=== PATIENT | male | born 1960 | race Caucasian/White ===

== ENCOUNTER 2022-01-19 11:38 | Day surgery (SDC) | payer OTHER ==
[2022-01-18 13:32] VITALS: BMI 24.4
[2022-01-19] MEDS ORDERED: Oxymetazoline HCl 0.05% (30 ML BOT) ONE ×2 (12:06→12:51)
[2022-01-19] MEDS ORDERED: fentaNYL PF 100 MCG/2 ML SYRINGE ONE (12:49)
[2022-01-19] MEDS ORDERED: EPINEPHrine 1 MG/ML AMP ONE (12:51)
[2022-01-19] MEDS ORDERED: Bacitracin Zinc Ointment 30 gm TUBE ONE (12:51)
[2022-01-19] MEDS ORDERED: Lidocaine 1% (PF) 30 ML VIAL ONE (12:51)
[2022-01-19] MEDS ORDERED: PROPOFOL 200 MG/20 ML VIAL ONE (13:06)
[2022-01-19] MEDS ORDERED: ePHEDrine 50 MG/ML VIAL ONE (13:06)
[2022-01-19] MEDS ORDERED: Rocuronium Bromide 10 MG/ML (10ML VIAL) ONE (13:06)
[2022-01-19] MEDS ORDERED: Dexamethasone 20 MG/5 ML VIAL ONE (13:06)
[2022-01-19] MEDS ORDERED: Ondansetron PF 4 MG/2 ML Vial ONE (13:06)
[2022-01-19] MEDS ORDERED: SUGAMMADEX SODIUM 200 MG/2 ML VIAL ONE (13:24)
[2022-01-19] MEDS ORDERED: HYDROcodone/Acetaminophen 5/325 mg Tablet ONE (17:47)
== END 2022-01-19 18:48 | disposition home or self-care (01) ==
LOC: SDC 11:38
PROVIDERS: ATTEND Otolaryngology Plastic Surgery within the Head & Neck
PROC: 095L0ZZ Destruction of Nasal Turbinate, Open Approach (ICD-10-PCS; principal; 2022-01-19)
PROC: 09TU8ZZ Resection of Right Ethmoid Sinus, Via Natural or Artificial Opening Endoscopic (ICD-10-PCS; principal; 2022-01-19)
PROC: 09BW8ZZ Excision of Right Sphenoid Sinus, Via Natural or Artificial Opening Endoscopic (ICD-10-PCS; principal; 2022-01-19)
PROC: 09BT8ZZ Excision of Left Frontal Sinus, Via Natural or Artificial Opening Endoscopic (ICD-10-PCS; principal; 2022-01-19)
PROC: 09BS8ZZ Excision of Right Frontal Sinus, Via Natural or Artificial Opening Endoscopic (ICD-10-PCS; principal; 2022-01-19)
PROC: 09BQ8ZZ Excision of Right Maxillary Sinus, Via Natural or Artificial Opening Endoscopic (ICD-10-PCS; principal; 2022-01-19)
PROC: 09BR8ZZ Excision of Left Maxillary Sinus, Via Natural or Artificial Opening Endoscopic (ICD-10-PCS; principal; 2022-01-19)
PROC: 09BX8ZZ Excision of Left Sphenoid Sinus, Via Natural or Artificial Opening Endoscopic (ICD-10-PCS; principal; 2022-01-19)
PROC: 8E09XBZ Computer Assisted Procedure of Head and Neck Region (ICD-10-PCS; principal; 2022-01-19)
PROC: 09SM0ZZ Reposition Nasal Septum, Open Approach (ICD-10-PCS; principal; 2022-01-19)
PROC: 09TV8ZZ Resection of Left Ethmoid Sinus, Via Natural or Artificial Opening Endoscopic (ICD-10-PCS; principal; 2022-01-19)
DX: J32.0 Chronic maxillary sinusitis (principal); J33.8 Other polyp of sinus; J30.89 Other allergic rhinitis; B48.8 Other specified mycoses; J34.2 Deviated nasal septum; J34.3 Hypertrophy of nasal turbinates; J45.909 Unspecified asthma, uncomplicated
CPT/HCPCS: 84484; 88304; 93005; 93010; C2625; J0171; J1100; J2001; J2405; J2704; J3490